=== PATIENT | female | born 1980 | race Caucasian/White ===

== ENCOUNTER 2018-01-05 16:21 | Emergency (ER) | payer BC ==
[2018-01-05] MEDS ORDERED: SODIUM CHLORIDE 0.9% 1,000 ML IV ONE (17:13)
[2018-01-05] MEDS ORDERED: ONDANSETRON 4 MG/2 ML VIAL IVP STA (17:13)
[2018-01-05] MEDS ORDERED: MORPHINE SULFATE 4 MG/ML SYRINGE IVP STA (17:13)
[2018-01-05] MEDS ORDERED: SODIUM CHLORIDE 0.9% 1,000 ML IV SCH (17:15)
--- NOTE | 2018-01-05 17:36 | ED ---
Upper Extremity HPI <IshJuana - Last Filed: 01/05/18 19:59> - General Source: patient, RN notes reviewed, old records reviewed Mode of arrival: wheelchair Limitations: no limitations <PabloMariella - Last Filed: 01/06/18 15:51> - General Chief Complaint: Extremity Injury, Upper Stated Complaint: Elbow dislocated Time Seen by Provider: 01/05/18 17:01 - History of Present Illness Initial Comments: This patient's a 37-year-old female presents emergency department today with chief complaint of dislocated right elbow. Patient reports that she is in [facility]. They did x-rays and told it was not fractured but significantly dislocated. She was sent here for further evaluation sedation and replacement. Patient reports she has range motion and sensation in her fingers. Patient denies any previous injuries. Patient reports she was at a playground and jumping on a trampoline and landed on her arm wrong. (Emily Shah) - Related Data Previous Rx's Medication Instructions Recorded HYDROcodone/APAP 5-325MG [Alvin 1 tab PO Q6HR PRN #12 tab 01/05/18 5-325] Allergies Allergy/AdvReac Type Severity Reaction Status Date / Time codeine Allergy Rash/Hives Verified 01/05/18 16:29 Review of Systems ROS Other: All systems not noted in ROS Statement are negative. <IshJuana - Last Filed: 01/05/18 19:59> ROS Other: All systems not noted in ROS Statement are negative. <Mariella Shahily - Last Filed: 01/06/18 15:51> ROS Statement: Those systems with pertinent positive or pertinent negative responses have been documented in the HPI. Past Medical History Past Medical History: No Reported History History of Any Multi-Drug Resistant Organisms: None Reported Past Surgical History: No Surgical Hx Reported Additional Past Surgical History / Comment(s): lasix Past Psychological History: No Psychological Hx Reported Smoking Status: Never smoker Past Alcohol Use History: Rare Past Drug Use History: None Reported <Emily Shah - Last Filed: 01/06/18 15:51> General Exam <Juana Deng - Last Filed: 01/05/18 19:59> Limitations: no limitations General appearance: alert, in no apparent distress Head exam: Present: atraumatic, normocephalic, normal inspection Eye exam: Present: normal appearance, PERRL, EOMI. Absent: scleral icterus, conjunctival injection, periorbital swelling ENT exam: Present: normal exam, mucous membranes moist Neck exam: Present: normal inspection. Absent: tenderness, meningismus, lymphadenopathy Respiratory exam: Present: normal lung sounds bilaterally. Absent: respiratory distress, wheezes, rales, rhonchi, stridor Cardiovascular Exam: Present: regular rate, normal rhythm, normal heart sounds. Absent: systolic murmur, diastolic murmur, rubs, gallop, clicks GI/Abdominal exam: Present: soft, normal bowel sounds. Absent: distended, tenderness, guarding, rebound, rigid Right Elbow exam: Present: tenderness, swelling, ecchymosis, dislocation. Absent: normal inspection, full ROM Forearm Wrist exam: Present: normal inspection, full ROM Hand Wrist exam: Present: normal inspection, full ROM Neuro motor exam: Present: wrist extension intact, thumb opposition intact, thumb IP flexion intact, thumb adduction intact Vascular: Present: normal capillary refill Back exam: Present: normal inspection Neurological exam: Present: alert, oriented X3, CN II-XII intact <Emily Shah - Last Filed: 01/06/18 15:51> - General Exam Comments Initial Comments: 37-year-old female. Alert and oriented. No distress. (Emily Shah) Vital Signs 01/05/18 01/05/18 01/05/18 16:23 18:54 18:55 Temperature 98.5 F Pulse Rate 71 71 92 Respiratory 16 17 16 Rate Blood Pressure 129/85 141/95 143/95 O2 Sat by Pulse 97 100 100 Oximetry 01/05/18 01/05/18 01/05/18 19:05 19:59 20:44 Temperature 98.0 F Pulse Rate 106 H 71 Respiratory 17 18 Rate Blood Pressure 168/102 130/84 O2 Sat by Pulse 100 100 Oximetry Procedures - Orthopedic Joint Reduction Joint #1 Consent Obtained: verbal consent Time Out Performed: Yes Side: right Joint Reduction Location: elbow Analgesia: procedural sedation Amount of Anesthetic Used (mLs): 140 Shoulder Technique Used (if applicable): traction/counter-traction Post-Reduction Neuro Exam: intact Post-Reduction Vascular Exam: intact Post Reduction X-Ray Obtained: Yes Post Reduction X-Ray Results: reduced Splint Applied: Yes (Posterior long arm splint applied) Patient Tolerated Procedure: well - Orthopedic Splinting/Casting Injury #1 Side: right Upper Extremity Injury Location: long arm, elbow Upper Extremity Immobilizer: sling/shoulder immobilizer - Procedural Sedation Procedural Sedation Start Time: 18:51 Procedural Sedation Stop Time: 19:10 Indications: fracture/dislocation reduction ASA Class: II Mallampati Airway Score: 2 Time of Last PO Intake: 13:05 Preparation: diagnostic cardiac sonographer applied, pulse oximeter, capnometry used, supplemental O2 applied, suction/airway equipment at bedside Ketamine: IV Ketamine Dose: 130 Complications: none Patient Tolerated Procedure: well <Juana Deng - Last Filed: 01/05/18 19:59> Medical Decision Making <Juana Deng - Last Filed: 01/05/18 19:59> <Emily Shah - Last Filed: 01/06/18 15:51> - Medical Decision Making This is a 37 year old female with dislocated R elbow from [facility] transfer. No evidence of fracture on outpatient xrays. Patient is neurovascularrly intact distally. Patient underwent procedureal sedaation with Dr. Deng. Elbow was relocated without difficulty, patientplaced in a long arm posterior splint and sling. Patient was Neurovasculary intact afterwards as well. Patient has full ROM of fingers, and radial pulse is 2 plus, cap refill less than 2 seconds. Patient case discussed with on-call orthopedic. Dr. Garcia. Patient will follow [place] with [place]opedic [place] is here [place] vacation. Patient given short course of pain medication. (Emily Shah) Disposition <Juana Deng - Last Filed: 01/05/18 19:59> Is patient prescribed a controlled substance at d/c from ED?: No Time of Disposition: 20:16 <Emily Shah - Last Filed: 01/06/18 15:51> Clinical Impression: Posterior dislocation of elbow Disposition: HOME SELF-CARE Condition: Good Instructions: Elbow Dislocation (ED) Additional Instructions: Patient advised to follow-up with primary care physician. Take Motrin. He states the pain medicine as well. Remain in the splint until seen by orthopedic. Prescriptions: HYDROcodone/APAP 5-325MG [Alvin 5-325] 1 tab PO Q6HR PRN #12 tab PRN Reason: Pain Referrals: Nonstaff,Physician [Primary Care Provider] - 1-2 days
[2018-01-05] MEDS: KETAMINE 10 MG/ML 20 ML VIAL IV STA ×2 (18:51→19:21)
[2018-01-05] MEDS ORDERED: methylPREDNISolone SOD SUCCI 125 MG/2 ML VIAL IV STA (19:13)
[2018-01-05] MEDS ORDERED: diphenhydrAMINE 50 MG/ML 1 ML VIAL IVP STA (19:13)
[2018-01-05 19:59] VITALS: BP 130/84; PULSE 71; RESP 18
--- NOTE | 2018-01-05 20:02 | XR ---
EXAMINATION TYPE: XR elbow limited RT DATE OF EXAM: 01/05/2018 CLINICAL HISTORY: Right elbow pain TECHNIQUE: Frontal, lateral and oblique images of the right elbow are obtained. COMPARISON: None FINDINGS: There is no acute fracture/dislocation evident in the right elbow. No abnormal fat pad si gns are seen. The overlying soft tissue appears unremarkable. IMPRESSION: There is no acute fracture or dislocation.
[2018-01-05] MEDS ORDERED: traMADol 50 MG STARTER PACK 3 TAB BTL PO STA (20:16)
[2018-01-05 20:46] VITALS: TEMP 98
== END 2018-01-05 20:46 | disposition home or self-care (01) ==
LOC: EC 16:21
DX: S53.124A Posterior dislocation of right ulnohumeral joint, initial encounter (principal); Z88.5 Allergy status to narcotic agent; W17.89XA Other fall from one level to another, initial encounter; Y93.44 Activity, trampolining; Y92.830 Public park as the place of occurrence of the external cause
CPT/HCPCS: 73070; 99284; 24600; 99152; 96374; 96375 ×3; 96361 ×3; J2270; J1200; J2930; J2405